=== PATIENT | female | born 1945 | race African-American/Black ===

== ENCOUNTER → 2023-03-12 | Outpatient (CLI) | payer MEDICARE ==
[~2023-03-12] MED LIST: ASPI-1497 PO; ATOR-2 PO; BUME1TAB8 PO; EMPA10TA PO; METO-396 PO; SACU1TAB PO; TICA90TA PO
== END | disposition home or self-care (01) ==
LOC: CARD 08:50
PROVIDERS: ATTEND Internal Medicine
DX: I08.8 Other rheumatic multiple valve diseases (principal); I50.22 Chronic systolic (congestive) heart failure; I25.10 Atherosclerotic heart disease of native coronary artery without angina pectoris
CPT/HCPCS: 93306